=== PATIENT | male | born 1960 | race African-American/Black ===

== ENCOUNTER 2017-12-04 14:31 | Outpatient (CLI) | payer OTHER | END 2017-12-04 14:32 | disposition home or self-care (01) | LOC: SC 14:31 | PROVIDERS: ATTEND Internal Medicine Pulmonary Disease | DX: G47.21 Circadian rhythm sleep disorder, delayed sleep phase type (principal) | CPT/HCPCS: 99203; 99212 ==

== ENCOUNTER 2018-01-26 21:39 | Outpatient (CLI) | payer OTHER | END 2018-01-26 21:40 | disposition home or self-care (01) | LOC: SC 21:39 | PROVIDERS: ATTEND Internal Medicine Pulmonary Disease | DX: R09.02 Hypoxemia (principal) | CPT/HCPCS: 95810 ==

== ENCOUNTER 2018-02-19 14:12 | Outpatient (CLI) | payer OTHER | END 2018-02-19 14:13 | disposition home or self-care (01) | LOC: SC 14:12 | PROVIDERS: ATTEND Internal Medicine Pulmonary Disease | DX: R09.02 Hypoxemia (principal) | CPT/HCPCS: 99212; 99213 ==

== ENCOUNTER 2021-02-17 13:16 | Outpatient (CLI) | payer OTHER ==
--- NOTE | 2021-02-17 14:58 | CT Report ---
PROCEDURE: Low Dose Lung Cancer Screen INDICATIONS: HX OF SMOKING TECHNIQUE: Noncontrast low-dose 5 mm thick sections acquired from the pulmonary apices to the posterior costophr enic angles. 7 mm thick coronal and sagittal MIP reformats were then acquired. For radiation dose r eduction, the following was used: automated exposure control, adjustment of mA and/or kV according t o patient size. COMPARISON: 06/18/2020 chest x-ray FINDINGS: Image quality: Excellent. Lungs and pleura: Mild scarring within the bilateral posterior medial lung bases as well as the righ t middle lobe and lingula. There are a few small 3 mm diameter nodules within the bilateral lung pare nchyma (for example, within the right upper lobe anteriorly on series 4 images 120 and 122). Mediastinum: Heart size is normal. No pericardial effusion. No mediastinal adenopathy by size crit eria. Calcified subcarinal and right hilar lymph nodes. Thoracic aorta and central pulmonary arterie s are normal in size. Esophagus is normal in caliber. No hiatal hernia. Bones and chest wall: No suspicious bony lesions. No vertebral body compression fractures. No axil kristopher or supraclavicular adenopathy by size criteria. The thyroid is normal in size. Abdomen: Visualized upper abdomen solid organs and bowel loops appear normal in the absence of contr ast. IMPRESSION: 1. No evidence of malignancy. Small bilateral pulmonary nodules as described above. Lung RADS 1. Repe at screening chest CT in one year is recommended. 2. Remote granulomatous disease. 3. Scarring within the right middle lobe, lingula, and bilateral lung bases. Findings may indicate po stinfectious/inflammatory scarring versus sequelae of chronic aspiration. Reviewed by: Yvan Liriano MD on 02/17/2021 2:57 PM PDT Approved by: Yvan Liriano MD on 02/17/2021 2:57 PM PDT Station ID: [id number]
== END 2021-02-17 13:17 | disposition home or self-care (01) ==
LOC: DI 13:16
PROVIDERS: ATTEND Family Medicine
DX: Z12.2 Encounter for screening for malignant neoplasm of respiratory organs (principal); F17.210 Nicotine dependence, cigarettes, uncomplicated; R91.8 Other nonspecific abnormal finding of lung field

== ENCOUNTER 2021-07-14 09:01 | Emergency (ER) | payer OTHER ==
--- NOTE | 2021-07-14 09:39 | ED Physician Documentation ---
PD HPI MALE - Stated complaint Stated Complaint: UNABLE TO URINATE,DIZZY - Chief complaint Chief Complaint: General - History obtained from History obtained from: Patient - History of Present Illness Timing - onset: Today, Last night Timing - duration: Hours (12) Timing - details: Gradual onset (has had dificulty with urination for days or so, then unable to urinate since last evening.), Still present Associated symptoms: Unable to urinate Similar symptoms before: Has not had sx before Recently seen: Clinic (seen in PCP for smoking cessation and started on Buproprion a week ago. No other change in meds.) Review of Systems Constitutional: denies: Fever, Chills Nose: denies: Rhinorrhea / runny nose, Congestion Throat: denies: Sore throat Respiratory: denies: Cough : reports: Hesitancy, Unable to Void Skin: denies: Rash, Lesions Musculoskeletal: denies: Back pain PD PAST MEDICAL HISTORY - Past Medical History Cardiovascular: High cholesterol Respiratory: Asthma Endocrine/Autoimmune: None GI: None, Colon polyps : Benign prostate hypertrophy HEENT: None Psych: None Musculoskeletal: None Derm: None - Past Surgical History General: Colonoscopy - Present Medications Home Medications: Ambulatory Orders Medication Instructions Recorded Confirmed Cholecalciferol (Vitamin D3) 01/21/14 01/21/14 [Vitamin D] Simvastatin [Zocor] 10 mg PO QPM 01/21/14 01/21/14 Fluticasone/Salmeterol [Advair Hfa 2.5 mcg 07/14/21 115-21 Mcg Inhaler] Tamsulosin [Flomax] 0.4 mg PO DAILY #20 cap 07/14/21 Tiotropium [place] [Spiriva 07/14/21 Respimat] - Allergies Allergies/Adverse Reactions: Allergies Allergy/AdvReac Type Severity Reaction Status Date / Time No Known Drug Allergies Allergy Verified 07/14/21 09:23 PD ED PE NORMAL - Vitals Vital signs reviewed: Yes - General General: Alert and oriented X 3, No acute distress, Well developed/nourished - Abdomen Abdomen: Other (fullness in bladder area. Not tender per se. ) - Back Back: No CVA TTP - Derm Derm: Normal color, Warm and dry - Extremities Extremities: No edema, No calf tenderness / cord Results - Vitals Vitals: Oxygen O2 Source Room air - Labs Labs: Laboratory Tests 07/14/21 07/14/21 09:58 10:15 Sodium 141 Potassium 4.2 Chloride 103 Carbon Dioxide 26 Anion Gap 12.0 BUN 13 Creatinine 1.1 Estimated GFR (MDRD) 82 L Glucose 111 H Calcium 10.0 Total Bilirubin 1.3 H AST 24 ALT 31 Alkaline Phosphatase 62 Total Protein 8.4 H Albumin 4.8 Globulin 3.7 Albumin/Globulin Ratio 1.3 Lipase 25 Urine Color YELLOW Urine Clarity CLEAR Urine pH 6.0 Ur Specific [place] 1.015 Urine Protein NEGATIVE Urine Glucose (UA) NEGATIVE Urine Ketones NEGATIVE Urine Occult Blood MODERATE H Urine Nitrite NEGATIVE Urine Bilirubin NEGATIVE Urine Urobilinogen 0.2 (NORMAL) Ur Leukocyte Esterase NEGATIVE Urine RBC 0-5 Urine WBC 0-3 Ur Squamous Epith Cells NONE SEEN Urine Bacteria Rare Ur Microscopic Review INDICATED Urine Culture Comments NOT INDICATED PD MEDICAL DECISION MAKING - ED course Complexity details: considered differential (buproprion does not have urinary retention listed as side effect in [facility], but interesting timing of new med with now retention. Has had BPH known for awhile. Not on any meds. Does have urologist. ), d/w patient Departure - Departure Disposition: Home, Self Care Clinical Impression: Acute urinary retention Condition: Stable Record reviewed to determine appropriate education?: Yes Instructions: ED Catheter Care [place] Follow-Up: Brandon Bailey DO [Primary Care Provider] - Prescriptions: Tamsulosin [Flomax] 0.4 mg PO DAILY #20 cap Comments: Your new medication for smoking cessation, bupropion, did not have urinary retention listed as a side effect. The timing is curious since you have been on it just a week. You could hold the bupropion for now and discuss it further with your urologist. Certainly your enlarged prostate is contributing mainly to the inability to urinate. We can start a medication to help reduce prostate enlargement. Take tamsulosin daily for the next few weeks. Call the urologist you would seen for a follow-up. Typically will want to keep the catheter in for several days or more while starting a prostate medication in order to prove improve the conditions before removing the catheter. Call the urology office for follow-up and they typically would see you probably early next week. No signs of infection in your urine. Continue your other usual medicines. Discharge Date/Time: 07/14/21 10:28
[2021-07-14] MEDS ORDERED: LIDOCAINE 2% URO-JET 5 ML SYRINGE UR STA (09:49)
[2021-07-14 10:16] LABS: ALBUMIN 4.8 g/dL (3.2-5.5); ALBUMIN/GLOBULIN RATIO 1.3 (1.0-2.2); BILIRUBIN,TOTAL 1.3 mg/dL (0.2-1.0); CREATININE 1.1 mg/dL (0.6-1.2); POTASSIUM 4.2 mmol/L (3.5-5.0); TOTAL PROTEIN 8.4 g/dL (6.7-8.2)
[2021-07-14 10:20] LABS: BILIRUBIN,URINE NEGATIVE (NEGATIVE); GLUCOSE, URINE (UA) NEGATIVE (NEGATIVE); KETONES,URINE (UA) NEGATIVE (NEGATIVE); LEUKOCYTE ESTERASE, URINE NEGATIVE (NEGATIVE); NITRITE,URINE NEGATIVE (NEGATIVE); OCCULT BLOOD,URINE MODERATE (NEGATIVE); PROTEIN,URINE NEGATIVE (NEGATIVE); UROBILINOGEN,URINE 0.2 (NORMAL) E.U./dL (NORMAL)
[2021-07-14 10:29] LABS: CLARITY,URINE CLEAR (CLEAR)
[2021-07-14] MEDS ORDERED: TAMSULOSIN 0.4 MG CAPSULE PO STA (10:35)
[2021-07-14 10:42] LABS: BACTERIA,URINE Rare /HPF (None Seen); RBC,URINE 0-5 /HPF (0-5); SQUAMOUS EPITHELIAL CELL,UR NONE SEEN (<= Few)
[2021-07-14 10:43] LABS: WBC,URINE 0-3 /HPF (0-3)
[2021-07-14 12:20] VITALS: BP 160/98
== END 2021-07-14 10:28 | disposition home or self-care (01) ==
LOC: ED 09:01
DX: N40.1 Benign prostatic hyperplasia with lower urinary tract symptoms (principal); R33.8 Other retention of urine; R39.11 Hesitancy of micturition
CPT/HCPCS: 36415; 51702; 51798; 80053; 81001; 83690; 99283; A9270; 81003; 87086

== ENCOUNTER 2024-08-05 07:12 | Day surgery (SDC) | payer MEDICARE, OTHER ==
[2024-08-05] MEDS: LACTATED RINGERS 1,000 ML IV ONE ×2 (07:44→10:20)
--- NOTE | 2024-08-05 07:55 | ANESTHESIA ---
Pre-Anesthesia VS, & Labs - Diagnosis screening - Procedure colonoscopy Vital Signs: Temp Pulse Resp BP Pulse Ox O2 Flow Rate 36 C L 96 14 172/98 H 95 08/05/24 07:37 08/05/24 07:37 08/05/24 07:37 08/05/24 07:37 08/05/24 07:37 Height: 5 ft 9 in Weight (kg): 87 kg Body Mass Index: 28.3 BMI Classification: Overweight - NPO >8 hours Last Fluid Intake: am prep - Lab Results Lab results reviewed: Yes Home Medications and Allergies Home Medications: Ambulatory Orders Albuterol Sulf [Ventolin Hfa Inhaler] 1 - 2 puffs INH Q4HR PRN 07/29/24 Atorvastatin Calcium 40 mg PO DAILY 07/29/24 Cholecalciferol [Vitamin D3] 25 mcg PO DAILY 07/29/24 Fluticasone Propion/Salmeterol [Advair Hfa 230-21 Mcg Inhaler] 2 puffs IH BID 07/29/24 Gabapentin [Gabapentin ER] 600 mg PO TID 07/29/24 Losartan Potassium 25 mg PO DAILY 07/29/24 Meloxicam 15 mg PO DAILY PRN 07/29/24 Multivitamin 1 each PO DAILY 07/29/24 Omeprazole 20 mg PO DAILY PRN 07/29/24 Propranolol ER [Inderal [place]] 80 mg PO DAILY 07/29/24 Tiotropium [place] 2 puffs IH DAILY 07/29/24 Albuterol Sulf [Ventolin Hfa Inhaler] 1 - 2 puffs INH Q4HR PRN 07/29/24 Atorvastatin Calcium 40 mg PO DAILY 07/29/24 Cholecalciferol [Vitamin D3] 25 mcg PO DAILY 07/29/24 Fluticasone Propion/Salmeterol [Advair Hfa 230-21 Mcg Inhaler] 2 puffs IH BID 07/29/24 Gabapentin [Gabapentin ER] 600 mg PO TID 07/29/24 Losartan Potassium 25 mg PO DAILY 07/29/24 Meloxicam 15 mg PO DAILY PRN 07/29/24 Multivitamin 1 each PO DAILY 07/29/24 Omeprazole 20 mg PO DAILY PRN 07/29/24 Propranolol ER [Inderal LA] 80 mg PO DAILY 07/29/24 Tiotropium [place] 2 puffs IH DAILY 07/29/24 Allergies/Adverse Reactions: Allergies Allergy/AdvReac Type Severity Reaction Status Date / Time No Known Drug Allergies Allergy Verified 08/02/24 13:33 Anes History & Medical History - Anesthetic History Anesthesia Complications: reports: No previous complications Family history of Anesthesia Complications: Denies Family history of Malignant Hyperthermia: Denies - Medical History Cardiovascular: reports: Hypertension, High cholesterol Pulmonary: reports: COPD Gastrointestinal: reports: Colon polyps Urinary: reports: Benign prostate hypertrophy, Other Musculoskeletal: reports: Osteoarthritis Endocrine/Autoimmune: reports: None Skin: reports: Eczema Smoking Status: Never smoker Psychosocial: reports: Alcohol (rare) - Surgical History General: reports: Colonoscopy Eyes Ears Nose Throat (EENT): reports: Other (pararthyroidectomy) Exam General: Alert, Oriented x3, Cooperative Dental: WNL Mouth Openin Fingerbreadth Neck Mobility: Normal Mallampati classification: I Thyromental Distance: 4-6 cm Respiratory: Lungs clear, Normal breath sounds, No respiratory distress Cardiovascular: Regular rate Neurological: Normal speech Mental/Cognitive Status: Alert/Oriented X3, Normal for patient Cognitive Status: Within normal limits Plan Anesthesia Type: Total IV Consent for Procedure(s) Verified and Reviewed: Yes Code Status: Attempt Resuscitation ASA classification: 2-Mild systemic disease Is this case an emergency?: No
[2024-08-05] MEDS ORDERED: PROPOFOL 500 MG/50 ML 500 MG/50 ML VIAL ONE (08:59)
[2024-08-05 10:41] VITALS: BP 129/86; O2SAT 97
--- NOTE | 2024-08-05 11:29 | ANESTHESIA POST OP EVALUATION ---
Anesthesia Post Eval - Post Anesthesia Eval Vitals: Last Vital Signs Temp 36.1 C L 08/05/24 09:37 Pulse 72 08/05/24 09:55 Resp 16 08/05/24 09:55 BP 129/86 H 08/05/24 09:55 Pulse Ox 97 08/05/24 09:55 O2 Flow Rate CV Function Including HR & BP: Stable Pain Control: Satisfactory Nausea & Vomiting: Negative Mental Status: Baseline Respiratory Status: Airway Patent Hydration Status: Satisfactory Anesthesia Complications: None
== END 2024-08-05 07:13 | disposition home or self-care (01) ==
LOC: SDS 07:12
PROVIDERS: ATTEND Surgery
PROC: 0DBL8ZZ Excision of Transverse Colon, Via Natural or Artificial Opening Endoscopic (ICD-10-PCS; 2024-08-05)
PROC: 0DBM8ZZ Excision of Descending Colon, Via Natural or Artificial Opening Endoscopic (ICD-10-PCS; principal; 2024-08-05 08:20)
DX: Z12.11 Encounter for screening for malignant neoplasm of colon (principal); D12.4 Benign neoplasm of descending colon; D12.3 Benign neoplasm of transverse colon; K64.1 Second degree hemorrhoids; J44.9 Chronic obstructive pulmonary disease, unspecified; I10 Essential (primary) hypertension; Z80.0 Family history of malignant neoplasm of digestive organs; Z87.891 Personal history of nicotine dependence
CPT/HCPCS: 45385; J7120